=== PATIENT | male | born 1955 | race Caucasian/White ===

== ENCOUNTER 2016-11-02 09:43 | Emergency (ER) | payer OTHER ==
[2016-11-02 11:20] LABS: BASOPHIL 1.2 % (0-2); EOSINOPHIL 2.2 % (0-5); HCT 44.1 % (42.0-52.0); HGB 15.2 g/dl (13.2-18.0); LYMPHOCYTE 30.3 % (15-48); MCH 31.3 pg (25.0-31.0); MCHC 34.5 g/dL (32.0-36.0); MCV 90.7 fL (78.0-100.0); MONOCYTE 22.2 % (0-12); MPV 9.5 fL (6.0-9.5); NEUTROPHIL 44.1 % (41-80); PLT 228 K/uL (150-400); RBC 4.86 M/uL (4.70-6.00); RDW 13.2 % (11.5-14.0)
[2016-11-02 11:33] LABS: CREATININE 1.5 mg/dL (0.7-1.2); POTASSIUM 3.7 mmol/L (3.5-5.1)
[2016-11-02 11:43] LABS: WBC 5.8 K/uL (4.0-10.5)
== END 2016-11-02 12:20 | disposition home or self-care (01) ==
LOC: FER 09:43
PROVIDERS: Emergency Medicine
DX: R55 Syncope and collapse (principal); J45.901 Unspecified asthma with (acute) exacerbation
CPT/HCPCS: 36415; 36600; 71010; 80048; 82803; 84443; 85025; 93005; 94640; 94664; J2930

== ENCOUNTER 2021-12-04 20:29 | Emergency (ER) | payer MEDICARE ==
[2021-12-04 21:45] LABS: BASOPHIL 0.3 % (0-2); EOSINOPHIL 1.6 % (0-7); HCT 45.5 % (42.0-52.0); HGB 15.3 g/dl (13.2-18.0); LYMPHOCYTE 10.4 % (15-48); MCHC 33.6 g/dL (32.0-36.0); MCV 92.3 fL (78.0-100.0); MONOCYTE 7.1 % (0-12); MPV 9.5 fL (6.0-9.5); NEUTROPHIL 80.3 % (41-80); NRBC 0; PLT 232 K/uL (150-400); RBC 4.93 M/uL (4.70-6.00); RDW 12.6 % (11.5-14.0); WBC 11.6 K/uL (4.0-10.5)
[2021-12-04 21:58] LABS: BILIRUBIN 1+ mg/dL (NEGATIVE); BLOOD 3+ Ery/uL (NEGATIVE); CLARITY CLOUDY (CLEAR); GLUCOSE (U) NORMAL (NORMAL); LEUKOCYTES NEGATIVE Leu/uL (NEGATIVE); NITRITE NEGATIVE (NEGATIVE); PROTEIN 2+ mg/dL (NEGATIVE); SPECIFIC GRAVITY 1.025 (1.001-1.030); UROBILINOGEN 0.2 mg/dL (0.2-1.0)
[2021-12-04 22:02] LABS: ALBUMIN 4.3 g/dL (3.4-5.0); BILIRUBIN - TOTAL 0.4 mg/dL (0.2-1.0); BUN/CREAT RATIO (CALC) 10.5 RATIO; CREATININE 1.52 mg/dL (0.67-1.17); GLOBULIN (CALCULATION) 3.8 g/dL; POTASSIUM 3.8 mmol/L (3.5-5.1); TOTAL PROTEIN 8.1 g/dL (6.4-8.2)
[2021-12-04 22:15] LABS: COLOR AMBER (YELLOW)
[2021-12-04] MEDS ORDERED: OXY-IR 5MG5 MG PO (22:16)
[2021-12-04] MEDS ORDERED: FLOMAX0.4 MG PO (22:16)
[2021-12-04] MEDS ORDERED: ONDANSETRON ODT4 MG PO (22:16)
[2021-12-04 22:18] LABS: URINARY RBC TNTC
[2021-12-04 22:20] LABS: BACTERIA TRACE
== END 2021-12-04 22:45 | disposition home or self-care (01) ==
LOC: FER 20:29
PROVIDERS: Emergency Medicine; Physician Assistant
DX: N13.2 Hydronephrosis with renal and ureteral calculous obstruction (principal); J45.909 Unspecified asthma, uncomplicated; F17.200 Nicotine dependence, unspecified, uncomplicated
CPT/HCPCS: 36415; 80053; 81001; 85025; J2270; J2405; J7030